=== PATIENT | female | born 1990 ===

== ENCOUNTER 2020-08-11 13:38 | Outpatient (CLI) | payer MEDICAID, SELFPAY ==
--- NOTE | 2020-08-11 13:30 | DI.RAD_ITS ---
Exam(s) XR KNEE LT 3V AP,LAT,PENNY EXAM: XR KNEE LT 3V AP,LAT,PENNY CLINICAL HISTORY: LEFT KNEE PAIN. TECHNIQUE: 2D digital imaging was performed. COMPARISON: CR,DX XR KNEE 3V LT from 11/20/2018 FINDINGS: There is no evidence of fracture nor joint effusion. Some calcification is noted at the insertion si te of the quadriceps tendon on the anterosuperior aspect of patella. No joint space narrowing nor degenerative changes. No obvious osteochondral defects. No patellar di splacement. No evidence of Patel Schlatter's disease. No osseous lesions. IMPRESSION: No significant radiograph findings left knee. DATA REPOSITORY: RADIATION DOSE DELIVERED:
== END 2020-08-11 13:39 | disposition home or self-care (01) ==
LOC: DIORS 13:39
PROVIDERS: PCP Physician Assistant Medical; Referring Provider Physician Assistant Medical; Visit Provider Student in an Organized Health Care Education/Training Program
DX: M25.562 Pain in left knee (principal)
CPT/HCPCS: 73562

== ENCOUNTER 2020-08-31 03:10 | Outpatient (CLI) | payer MEDICAID, SELFPAY ==
--- NOTE | 2020-08-31 07:00 | DI.MRI_ITS ---
Exam(s) MR LOWER JOINT LT WO EXAM: MR LOWER JOINT LT WO CLINICAL HISTORY: L KNEE PAIN,INTERNAL DERANGEMENT,M23.92. TECHNIQUE: Multiplanar multisequence MRI was performed. COMPARISON: CR XR KNEE LT 3V AP,LAT,PENNY from 08/11/2020 FINDINGS: BONES: There is no fracture or contusion pattern. JOINTS: Articular cartilage is unremarkable. No effusion is present. TENDONS: Extensor mechanism: Unremarkable. Medial retinaculum: Unremarkable. Lateral retinaculum: Unremarkable. Popliteus: Unremarkable. MUSCLES: Unremarkable. MENISCI: The medial meniscus is unremarkable. The lateral meniscus is unremarkable. SOFT TISSUES: Unremarkable. LIGAMENTS: Anterior Cruciate: Unremarkable. Posterior Cruciate: Unremarkable. Medial Collateral:Unremarkable. Lateral Collateral: Unremarkable. OTHER: IMPRESSION: 1. No evidence of a meniscal or ligament tear. 2. No evidence of an occult fracture or osteochondral defect. 3. DATA REPOSITORY:
== END 2020-08-31 03:30 ==
PROVIDERS: PCP Physician Assistant Medical; Visit Provider Student in an Organized Health Care Education/Training Program
DX: M25.562 Pain in left knee (principal); M23.92 Unspecified internal derangement of left knee
CPT/HCPCS: 73721